=== PATIENT | female | born 1960 | race Caucasian/White ===

== ENCOUNTER 2024-01-08 09:28 | Outpatient (AMB) | payer MEDICARE, MEDICAID, SELFPAY ==
--- NOTE | 2024-01-08 09:29 | A.OFFVIS_ITS ---
Vital Signs 3 01/08/24 09:30 Height 5 ft 4 in Weight 197 lb 15.602 oz BMI 34.0 BP 134/73 Blood Pressure Location Rt brachial Position Sitting Pulse 86 Intake Visit Reasons: Colonoscopy screening Intake Note: New patient in office today for colonoscopy screening. CC: Patient states that she is either constipated or has diarrhea. She also c/o excruciating spasms in her esophagus, acid reflux. She also states that after having covid she's had diminished lung capacity. She also states that she has a fatty liver. Last colonoscopy about 8 years ago at [facility] per patient. Plastic Surgery Coordinator Required: No Accompanied by: Self / Same As Patient Allergies citalopram [From CELEXA] Allergy (Unknown, Verified 01/08/24 09:43) hives, swelling of whole body including face,hands,feet codeine [CODEINE] Allergy (Unknown, Verified 01/08/24 09:43) nausea diazepam [From VALIUM] Allergy (Unknown, Verified 01/08/24 09:43) low blood pressure erythromycin base [ERYTHROMYCIN BASE] Allergy (Unknown, Verified 01/08/24 09:43) rash, swelling Penicillins [PENICILLINS] Allergy (Unknown, Verified 01/08/24 09:43) anaphylaxis HPI HPI Colonoscopy screening: Details: 63-year-old female here for preprocedural meeting to discuss a screening colonoscopy. She is referred by [facility]. P.m. X Hypertension High cholesterol Depression GERD Lumbar degenerative disc disease MVR mild Restrictive lung disease s/p covid DVT and son of DVT * SURGICAL HISTORY Uterine ablation panniculectomy * ALLERGIES Erythromycin - rash Penicillin - swelling Citalopram - rash Codeine - nausea Diazepam - hypotension * Cigital LABS: No labs TODAY'S VISIT She had had several colonoscopies her last 8 years ago and she has a hx of TA's. She suffers CIC alt with diarrhea, she will go many days without a BM and the initial stool is very hard at times. The CIC is more often. She also will have severe gas pain and cramping. She has tried fiber but it made her very gassy. she has tried MIralax, dulcolax, senna and colace w/o any relief - they did not work. She has lost 60lbs with intentional dieting. She gained a lot of weight stress eating after her sons . This may have c/t her CIC. She has GERD and lately a lot of spasms in my esophagus, which is also worse since she had covid. Meat will get stuck in the mid sternal area. She will have the pain even when not swallowing. It feels like a heart attack, but she has had a negative work up. She stopped the omeprazole for now, giving of prn pepcid. She is naive to anesthesia and sedation. She has some reactive lung disease since covid that is controlled, no cardiac problems just mild MVR. No ID problems. She had a hx of TA's and FHX of maternal aunt with CRC and mother, sister, uncle with polyps. ROV 5 weeks. [facility] Medical History (Updated 01/08/24 @ 10:27 by SOM Marie) History of DVT (deep vein thrombosis) Surgical History H/O abdominoplasty H/O colonoscopy Family History Mother Colon polyp Ovarian cancer Pancreatic cancer Sister Colon cancer Sister Colon polyp Cancer of uterus Brother Liver cancer Maternal Aunt Colon cancer Maternal Uncle Colon polyp Social History Alcohol intake: current Alcohol intake frequency: holidays/special occasions only Patient Tobacco Use Status: Former Tobacco user Review of Systems Const Denies fatigue, Denies fever(s), Denies night sweats, Denies poor appetite and Reports weight loss ENT Reports Normal hearing present, Denies dental pain, Reports dysphagia, Denies hearing loss, Denies mouth pain, Denies odynophagia, Denies throat swelling, Denies tongue swelling and Reports other (Dentition adequate) Card Reports chest pain Resp Reports no additional complaints GI Details: Reports abdominal pain, Denies melena, Reports bloating, Denies hematochezia, Reports constipation, Denies GI cramping, Reports dysphagia, Denies excessive flatus, Denies early satiety, Reports heartburn, Reports diarrhea, Denies nausea, Denies odynophagia, Denies vomiting and Denies hematemesis Skin/Breast Denies pruritus, Denies lesions, Denies rash and Denies jaundice Neuro Reports Normal hearing present and Denies Abnormal speech present Endo Denies fatigue Aller/Immun Denies throat swelling and Denies tongue swelling Physical Exam Vital Signs: Last Vital Signs Pulse 86 01/08/24 09:30 BP 134/73 01/08/24 09:30 BMI result Body Mass Index 34.0 Const General: cooperative, no acute distress, well developed and well groomed Nutritional Appearance: well nourished and obese Orientation/consciousness: oriented to person, oriented to place and oriented to time Limitations: No language barrier HEENT Head: Yes normocephalic and Yes atraumatic Eyes General: appearance normal, both eyes and all related structures Pupils: Equal, round and reactive pupils present Neck Neck: Yes normal visual inspection and Yes no lymphadenopathy Thyroid: Thyroid normal Resp Effort & Inspection: normal respiratory effort and able to speak in complete sentences Auscultation: clear to auscultation bilaterally Cardio Rate: regular rate Rhythm: regular rhythm Heart sounds: Normal, physiologic split S2 sound present Peripheral pulses: radial pulses present and posterior tibial pulses present GI Inspection: No distended, No Abdominal panniculus present and Yes obesity Palpation (GI): Soft to palpation, nontender, no guarding, not rigid and No hepatosplenomegaly present Percussion: Yes normal to percussion Auscultation: normal bowel sounds Rectal Exam - Female: deferred Abdomen image: 2 1. surgical scars Skin General skin exam: no rashes or lesions noted, turgor normal, skin not dry, no jaundice, No spider nevi and no striae Rashes: no rashes Nails: normal Neuro General: oriented to person, oriented to place and oriented to time Cranial nerves: Yes Equal, round and reactive pupils present and Yes Normal hearing present Speech: No Abnormal speech present Extrem General: Yes normal to inspection, No clubbing, No cyanosis and No edema Psych Appearance: grossly normal and well kempt Mental Status: mental status grossly normal Speech and movement: Normal speech and movement present Affect: normal affect Attitude: cooperative Thought process: Normal thought process present and not confabulating Thought content: Normal thought content present Insight: Fair insight present (Psych) Judgement: Fair judgement present (Psych) Assessment & Plan Assessment & Plan (1) Pre-op examination: Code(s): Z01.818 - Encounter for other preprocedural examination Category: Medical (2) GERD (gastroesophageal reflux disease): Code(s): K21.9 - Gastro-esophageal reflux disease without esophagitis Category: Medical (3) Dysphagia: Code(s): R13.10 - Dysphagia, unspecified Category: Medical (4) Chronic idiopathic constipation: Code(s): K59.04 - Chronic idiopathic constipation Category: Medical Plan She had had several colonoscopies her last 8 years ago and she has a hx of TA's. She suffers CIC alt with diarrhea, she will go many days without a BM and the initial stool is very hard at times. The CIC is more often. She also will have severe gas pain and cramping. She has tried fiber but it made her very gassy. she has tried MIralax, dulcolax, senna and colace w/o any relief - they did not work. She has lost 60lbs with intentional dieting. She gained a lot of weight stress eating after her sons . This may have c/t her CIC. She has GERD and lately a lot of spasms in my esophagus, which is also worse since she had covid. Meat will get stuck in the mid sternal area. She will have the pain even when not swallowing. It feels like a heart attack, but she has had a negative work up. She stopped the omeprazole for now, giving of prn pepcid. She is naive to anesthesia and sedation. She has some reactive lung disease since covid that is controlled, no cardiac problems just mild MVR. No ID problems. She had a hx of TA's and FHX of maternal aunt with CRC and mother, sister, uncle with polyps. ROV 5 weeks. Orders: Orders 2 EGD/[place] Combo - GI Use Only 01/08/24 Z.818 - Encounter for other preprocedural examination, R13.10 - Dysphagia, unspecified Comprehensive Met. Panel 01/08/24 Z01.818 - Encounter for other preprocedural examination, R13.10 - Dysphagia, unspecified Complete Blood Count Auto Diff 01/08/24 Z.818 - Encounter for other preprocedural examination, R13.10 - Dysphagia, unspecified FL barium swallow 01/12/24 R13.10 - Dysphagia, unspecified, Z01.818 - Encounter for other preprocedural examination, K21.9 - Gastro-esophageal reflux disease without esophagitis Medications: New 2 bisacodyl (Dulcolax (bisacodyl)) 10 mg (2 x 5 mg) PO BEDTIME 4 tabs 0RF 2 days famotidine (Pepcid) 40 mg PO BEDTIME 30 tabs 6RF K21.9 - Gastro-esophageal reflux disease without esophagitis peg 3350-electrolytes 236-22.74-6.74 -5.86 gram (Golytely) until fecal effluent is clear; do not exceed a total volume of 2,000 mL 240 mL PO Q10M 4,000 mL 0RF 1 day Z12.11 - Encounter for screening for malignant neoplasm of colon linaclotide (Linzess) 72 mcg PO QAM 30 caps 3RF K59.04 - Chronic idiopathic constipation Coding Level of Care Code New Pt Level 3 (23520) Diagnoses Pre-op examination Z01.818 GERD (gastroesophageal reflux disease) K21.9 Dysphagia R13.10 Chronic idiopathic constipation K59.04
[2024-01-08 09:30] VITALS: BP 134/73; PULSE 86; BMI 34.0
== END 2024-01-08 10:35 | disposition home or self-care (01) ==
PROVIDERS: PCP Physician Assistant Medical; Visit Provider Nurse Practitioner
DX: K21.9 Gastro-esophageal reflux disease without esophagitis (principal); R13.10 Dysphagia, unspecified; K59.04 Chronic idiopathic constipation; Z12.11 Encounter for screening for malignant neoplasm of colon
CPT/HCPCS: 99203

== ENCOUNTER → 2024-01-08 09:28 | Outpatient (BNVA) | payer MEDICARE, MEDICAID, SELFPAY | PROVIDERS: PCP Physician Assistant Medical; Visit Provider Nurse Practitioner | DX: Z01.818 Encounter for other preprocedural examination (principal); R13.10 Dysphagia, unspecified; K21.9 Gastro-esophageal reflux disease without esophagitis; K59.04 Chronic idiopathic constipation | CPT/HCPCS: 99202 ==

== ENCOUNTER 2024-01-12 08:44 | Outpatient (REF) | payer MEDICARE, MEDICAID, SELFPAY ==
--- NOTE | ~2024-01-12 | FL_ITS ---
EXAMINATION: XR FLUOROSCOPY UPPER GI WITH AIR CLINICAL INFORMATION: Dysphagia COMPARISON: None TECHNIQUE: Fluoroscopic air contrast upper GI examination was performed utilizing standard techniques with thin and thick barium and effervescent granules. Numerous spot images were obtained. FINDINGS: Lateral cine images of the oropharynx and hypopharynx demonstrate normal swallow mechanism with normal epiglottic inversion and soft palate elevation. No tracheal penetration, glottic or subglottic aspiration identified. No nasopharyngeal reflux present. Hypopharyngeal structures appear normal without evidence of mass or diverticulum. There was no significant cricopharyngeal achalasia. Dual and single contrast images of the esophagus demonstrate normal caliber, contour, and mucosal pattern. No evidence of stricture, mass, or ulcerations identified. Esophageal peristalsis is mildly disorganized. A very small type I hiatal hernia is present. No significant gastroesophageal reflux was seen during the course of the examination and on reflux views. Dual contrast and single contrast images of the stomach demonstrated normal contour and mucosal pattern without evidence of mass, ulceration, or other abnormality. Contrast freely passed into the gastric antrum and duodenal bulb without delay. Single and air-contrast images of the duodenal bulb demonstrate no abnormality. The duodenal sweep has a normal appearance, course, and mucosal fold appearance. The imaged proximal jejunum has a normal fold pattern and caliber. FLUOROSCOPY TIME: 5 minutes 3 seconds Number of Spot Images: 10 Number of Cine: 14 DOSE AREA PRODUCT: 3301 uGy-m2 (microgray-meter squared) FL/FL barium swallow IMPRESSION: 1. Mildly disorganized esophageal peristalsis 2. Very small type I hiatal hernia This procedure was performed by Everett Mccann PA-C, and supervised by Dr. Maravilla
== END 2024-01-12 08:45 | disposition home or self-care (01) ==
LOC: HO.XRAY 08:44
PROVIDERS: Visit Provider Nurse Practitioner
DX: Z01.818 Encounter for other preprocedural examination (principal); R13.10 Dysphagia, unspecified; K21.9 Gastro-esophageal reflux disease without esophagitis
CPT/HCPCS: 74220

== ENCOUNTER → 2024-01-12 08:50 | Outpatient (BNV) | payer MEDICARE, MEDICAID, SELFPAY | PROVIDERS: Visit Provider Physician Assistant Surgical | DX: R13.10 Dysphagia, unspecified (principal) | CPT/HCPCS: 74246 ==

== ENCOUNTER 2024-02-09 08:35 | Outpatient (REF) | payer MEDICARE, MEDICAID, SELFPAY ==
[2024-02-09 09:02] LABS: MANUAL DIFF FLAG NO
[2024-02-09 09:27] LABS: Basophils Absolute Auto 0.1 X10*3/uL (0.0-0.2); Basophils Percent Auto 0.6 % (0-2); Eosinophils Absolute Auto 0.2 X10*3/uL (0.0-0.4); Eosinophils Percent Auto 2.2 % (0-4); Hematocrit 42.4 % (37.0-47.0); Hemoglobin 15.2 g/dl (12.0-16.0); Imm Gran Abs Auto 0.01 X10*3/uL (0.00-0.03); Imm Gran Pct Auto 0.1 % (0.0-0.4); Lymphocytes Absolute Auto 3.1 X10*3/uL (1.2-4.9); Lymphocytes Percent Auto 39.7 % (20-40); Mean Corpuscular HGB Conc 35.8 g/dl (31.0-35.0); Mean Corpuscular Volume 86.5 fL (80.0-98.0); Mean Platelet Volume 11.8 fL (9.4-12.3); Monocytes Absolute Auto 0.4 X10*3/uL (0.1-1.2); Monocytes Percent Auto 5.1 % (2-11); Neutrophils Absolute Auto 4.1 x10*3/uL (2.0-8.3); Neutrophils Percent Auto 52.3 % (45-73); Platelet Count 220 X10*3/uL (160-400); Red Cell Distribution Width 13.4 % (11.0-16.0); White Blood Count 7.9 X10*3/uL (4.8-10.8)
[2024-02-09 09:57] LABS: Alanine Aminotransferase 18 U/L (0-31); Albumin Level 4.2 g/dL (3.5-5.0); Alkaline Phosphatase 72 U/L (39-117); Anion Gap 13 (12-20); Aspartate Amino Transferase 18 U/L (5-31); Bilirubin Total 0.7 mg/dL (0.0-1.0); Blood Urea Nitrogen 19 mg/dL (9-16); Calcium 9.7 mg/dL (8.4-10.2); Carbon Dioxide 26 mmol/L (22-29); Chloride 107 mmol/L (96-108); Estimated Glomerular Filt Rate > 60; Glucose Random 97 mg/dL (60-115); Potassium 4.1 mmol/L (3.3-5.1); Sodium 142 mmol/L (135-145); Total Protein 7.2 g/dL (6.5-8.0)
== END 2024-02-09 08:36 | disposition home or self-care (01) ==
LOC: HO.LAB 08:35
PROVIDERS: Visit Provider Nurse Practitioner
DX: Z01.818 Encounter for other preprocedural examination (principal); R13.10 Dysphagia, unspecified
CPT/HCPCS: 36415; 80053; 85025

== ENCOUNTER 2024-02-12 12:17 | Outpatient (AMB) | payer MEDICARE, MEDICAID, SELFPAY ==
--- NOTE | 2024-02-12 12:26 | A.OFFVIS_ITS ---
Vital Signs 02/12/24 12:32 Height 5 ft 4 in Weight 198 lb 13.711 oz BMI 34.1 BP 116/56 L Blood Pressure Location Rt brachial Position Sitting Pulse 82 Pulse Source Pulse Oximeter Pulse Oximetry (%) 95 Oxygen Delivery Method Room Air Intake Visit Reasons: 5 week follow up Intake Note: Jessi presents in office today for a scheduled 5 week FUV. CC; Pt reports that their sx have remained constant since their last visit. Pt states that they had moderate to severe diarrhea more often than normal BMs over the last few weeks. Pt states that they are still taking the linzess as instructed despite their current position. Pt reports that she is still dealing with the intermittent constipation when she is not having diarrhea. Pt is also dealing with bloating in the upper abdomen. Lock Up Worker Required: No Allergies citalopram [From CELEXA] Allergy (Unknown, Verified 02/12/24 12:34) hives, swelling of whole body including face,hands,feet codeine [CODEINE] Allergy (Unknown, Verified 02/12/24 12:34) nausea diazepam [From VALIUM] Allergy (Unknown, Verified 02/12/24 12:34) low blood pressure erythromycin base [ERYTHROMYCIN BASE] Allergy (Unknown, Verified 02/12/24 12:34) rash, swelling Penicillins [PENICILLINS] Allergy (Unknown, Verified 02/12/24 12:34) anaphylaxis HPI HPI 5 week follow up: Details: Assessment & Plan (1) Pre-op examination: Code(s): Z01.818 - Encounter for other preprocedural examination Category: Medical (2) GERD (gastroesophageal reflux disease): Code(s): K21.9 - Gastro-esophageal reflux disease without esophagitis Category: Medical (3) Dysphagia: Code(s): R13.10 - Dysphagia, unspecified Category: Medical (4) Chronic idiopathic constipation: Code(s): K59.04 - Chronic idiopathic constipation Category: Medical Plan She had had several colonoscopies her last 8 years ago and she has a hx of TA's. She suffers CIC alt with diarrhea, she will go many days without a BM and the initial stool is very hard at times. The CIC is more often. She also will have severe gas pain and cramping. She has tried fiber but it made her very gassy. she has tried MIralax, dulcolax, senna and colace w/o any relief - they did not work. She has lost 60lbs with intentional dieting. She gained a lot of weight stress eating after her sons . This may have c/t her CIC. She has GERD and lately a lot of spasms in my esophagus, which is also worse since she had covid. Meat will get stuck in the mid sternal area. She will have the pain even when not swallowing. It feels like a heart attack, but she has had a negative work up. She stopped the omeprazole for now, giving of prn pepcid. She is naive to anesthesia and sedation. She has some reactive lung disease since covid that is controlled, no cardiac problems just mild MVR. No ID problems. She had a hx of TA's and FHX of maternal aunt with CRC and mother, sister, uncle with polyps. ROV 5 weeks. Orders: Orders EGD/Silvis Combo - GI Use Only 01/08/24 Z01.818 - Encounter for other preprocedural examination, R13.10 - Dysphagia, unspecified Comprehensive Met. Panel 01/08/24 Z01.818 - Encounter for other preprocedural examination, R13.10 - Dysphagia, unspecified Complete Blood Count Auto Diff 01/08/24 Z01.818 - Encounter for other preprocedural examination, R13.10 - Dysphagia, unspecified FL barium swallow 01/12/24 R13.10 - Dysphagia, unspecified, Z01.818 - Encounter for other preprocedural examination, K21.9 - Gastro-esophageal reflux disease without esophagitis Medications: New bisacodyl (Dulcolax (bisacodyl)) 10 mg (2 x 5 mg) PO BEDTIME 4 tabs 0RF 2 days famotidine (Pepcid) 40 mg PO BEDTIME 30 tabs 6RF K21.9 - Gastro-esophageal reflux disease without esophagitis peg 3350-electrolytes 236-22.74-6.74 -5.86 gram (Golytely) until fecal effluent is clear; do not exceed a total volume of 2,000 mL 240 mL PO Q10M 4,000 mL 0RF 1 day Z12.11 - Encounter for screening for malignant neoplasm of colon linaclotide (Linzess) 72 mcg PO QAM 30 caps 3RF K59.04 - Chronic idiopathic constipation LABS: Laboratory Tests 02/09/24 09:01 WBC 7.9 Hgb 15.2 Hct 42.4 MCV 86.5 MCH 31.0 Plt Count 220 Estimated GFR > 60 Total Bilirubin 0.7 AST 18 ALT 18 Alkaline Phosphatase 72 BARIUM SWALLOW FINDINGS: Lateral cine images of the oropharynx and hypopharynx demonstrate normal swallow mechanism with normal epiglottic inversion and soft palate elevation. No tracheal penetration, glottic or subglottic aspiration identified. No nasopharyngeal reflux present. Hypopharyngeal structures appear normal without evidence of mass or diverticulum. There was no significant cricopharyngeal achalasia. Dual and single contrast images of the esophagus demonstrate normal caliber, contour, and mucosal pattern. No evidence of stricture, mass, or ulcerations identified. Esophageal peristalsis is mildly disorganized. A very small type I hiatal hernia is present. No significant gastroesophageal reflux was seen during the course of the examination and on reflux views. Dual contrast and single contrast images of the stomach demonstrated normal contour and mucosal pattern without evidence of mass, ulceration, or other abnormality. Contrast freely passed into the gastric antrum and duodenal bulb without delay. Single and air-contrast images of the duodenal bulb demonstrate no abnormality. The duodenal sweep has a normal appearance, course, and mucosal fold appearance. The imaged proximal jejunum has a normal fold pattern and caliber. FLUOROSCOPY TIME: 5 minutes 3 seconds Number of Spot Images: 10 Number of Cine: 14 DOSE AREA PRODUCT: 3301 uGy-m2 (microgray-meter squared) FL/FL barium swallow IMPRESSION: 1. Mildly disorganized esophageal peristalsis 2. Very small type I hiatal hernia EGD/COLONOSCOPY Scheduled for 08/01/2024 BIOPSY TODAY'S VISIT The Joie at 72 micro g is not regulating her bowels yet. She will still go several days without a bowel movement followed by responsive diarrhea. Will increase to 145 micro g. We reviewed the barium swallow and it does not show any severe concerning causes. The EGD will likely be telling in terms of her dysphagia. She does better when she keeps water Handy when she is eating. She is doing okay on the Pepcid. She will still have occasional chest pain and we discuss her trying to take the Pepcid when this happens to see if it has an impact. This will help us decipher between heartburn and esophageal spasm. Return office visit in 6 weeks [facility] Medical History History of DVT (deep vein thrombosis) Surgical History H/O abdominoplasty H/O colonoscopy Family History Mother Colon polyp Ovarian cancer Pancreatic cancer Sister Colon cancer Sister Colon polyp Cancer of uterus Brother Liver cancer Maternal Aunt Colon cancer Maternal Uncle Colon polyp Social History Alcohol intake: current Alcohol intake frequency: holidays/special occasions only Patient Tobacco Use Status: Former Tobacco user Review of Systems Const Denies fatigue, Denies fever(s), Denies night sweats, Denies poor appetite and Denies weight loss ENT Reports Normal hearing present, Denies dental pain, Denies dysphagia, Denies hearing loss, Denies mouth pain, Denies odynophagia, Denies throat swelling, Denies tongue swelling and Reports other (Dentition adequate) GI Details: Denies abdominal pain, Denies melena, Denies bloating, Denies hematochezia, Denies constipation, Denies GI cramping, Denies dysphagia, Denies excessive flatus, Denies early satiety, Denies heartburn, Denies diarrhea, Denies nausea, Denies odynophagia, Denies vomiting and Denies hematemesis Skin/Breast Denies pruritus, Denies lesions, Denies rash and Denies jaundice Neuro Reports Normal hearing present and Denies Abnormal speech present Endo Denies fatigue Aller/Immun Denies throat swelling and Denies tongue swelling Physical Exam Vital Signs: Last Vital Signs Pulse 82 02/12/24 12:32 BP 116/56 L 02/12/24 12:32 Pulse Ox 95 02/12/24 12:32 Oxygen Delivery Method Room Air 02/12/24 12:32 BMI result Body Mass Index 34.1 Const General: cooperative, no acute distress, well developed and well groomed Nutritional Appearance: well nourished, obese and overweight Orientation/consciousness: oriented to person, oriented to place and oriented to time Limitations: No language barrier, ambulation with cane, ambulation with walker and wheelchair HEENT Head: Yes normocephalic and Yes atraumatic Eyes General: appearance normal, both eyes and all related structures Pupils: Equal, round and reactive pupils present Neck Neck: Yes normal visual inspection and Yes no lymphadenopathy Thyroid: Thyroid normal Resp Effort & Inspection: normal respiratory effort and able to speak in complete sentences Auscultation: clear to auscultation bilaterally Cardio Rate: regular rate Rhythm: regular rhythm Heart sounds: Normal, physiologic split S2 sound present Peripheral pulses: radial pulses present and posterior tibial pulses present GI Inspection: No distended and No Abdominal panniculus present Palpation (GI): Soft to palpation, nontender, no guarding, not rigid, No hepatosplenomegaly present and Hepatosplenomegaly present Percussion: Yes normal to percussion Auscultation: normal bowel sounds Rectal Exam - Female: deferred Skin General skin exam: no rashes or lesions noted, turgor normal, skin not dry, no jaundice, No spider nevi and no striae Rashes: no rashes Nails: normal Neuro General: oriented to person, oriented to place and oriented to time Cranial nerves: Yes Equal, round and reactive pupils present and Yes Normal hearing present Speech: No Abnormal speech present Extrem General: Yes normal to inspection, No clubbing, No cyanosis and No edema Psych Thought process: Normal thought process present and not confabulating Thought content: Normal thought content present Insight: Good insight present (Psych) Judgement: Good judgement present (Psych) Results Reviewed Results Reviewed: Laboratory Tests 02/09/24 09:01 WBC 7.9 Hgb 15.2 Hct 42.4 MCV 86.5 MCH 31.0 Plt Count 220 Estimated GFR > 60 Total Bilirubin 0.7 AST 18 ALT 18 Alkaline Phosphatase 72 BARIUM SWALLOW FINDINGS: Lateral cine images of the oropharynx and hypopharynx demonstrate normal swallow mechanism with normal epiglottic inversion and soft palate elevation. No tracheal penetration, glottic or subglottic aspiration identified. No nasopharyngeal reflux present. Hypopharyngeal structures appear normal without evidence of mass or diverticulum. There was no significant cricopharyngeal achalasia. Dual and single contrast images of the esophagus demonstrate normal caliber, contour, and mucosal pattern. No evidence of stricture, mass, or ulcerations identified. Esophageal peristalsis is mildly disorganized. A very small type I hiatal hernia is present. No significant gastroesophageal reflux was seen during the course of the examination and on reflux views. Dual contrast and single contrast images of the stomach demonstrated normal contour and mucosal pattern without evidence of mass, ulceration, or other abnormality. Contrast freely passed into the gastric antrum and duodenal bulb without delay. Single and air-contrast images of the duodenal bulb demonstrate no abnormality. The duodenal sweep has a normal appearance, course, and mucosal fold appearance. The imaged proximal jejunum has a normal fold pattern and caliber. FLUOROSCOPY TIME: 5 minutes 3 seconds Number of Spot Images: 10 Number of Cine: 14 DOSE AREA PRODUCT: 3301 uGy-m2 (microgray-meter squared) FL/FL barium swallow IMPRESSION: 1. Mildly disorganized esophageal peristalsis 2. Very small type I hiatal hernia Assessment & Plan Assessment & Plan (1) Dysphagia: Code(s): R13.10 - Dysphagia, unspecified Category: Medical (2) Chronic idiopathic constipation: Code(s): K59.04 - Chronic idiopathic constipation Category: Medical (3) GERD (gastroesophageal reflux disease): Code(s): K21.9 - Gastro-esophageal reflux disease without esophagitis Category: Medical Plan The Linzess at 72 micro g is not regulating her bowels yet. She will still go several days without a bowel movement followed by responsive diarrhea. Will increase to 145 micro g. We reviewed the barium swallow and it does not show any severe concerning causes. The EGD will likely be telling in terms of her dysphagia. She does better when she keeps water Handy when she is eating. She is doing okay on the Pepcid. She will still have occasional chest pain and we discuss her trying to take the Pepcid when this happens to see if it has an impact. This will help us decipher between heartburn and esophageal spasm. Return office visit in 6 weeks EGD/COLONOSCOPY Scheduled for 08/01/2024 BIOPSY Medications: New linaclotide (Linzess) Take first thing in the morning with a full glass of water. 145 mcg PO QAM 30 caps 6RF K58.1 - Irritable bowel syndrome with constipation Discontinued linaclotide Discontinued Reason: Doctor's Order 72 mcg PO QAM 30 caps 3RF K59.04 - Chronic idiopathic constipation Coding Level of Care Code Est Pt Level 3 (94925) Diagnoses Dysphagia R13.10 Chronic idiopathic constipation K59.04 GERD (gastroesophageal reflux disease) K21.9
[2024-02-12 12:32] VITALS: BP 116/56; PULSE 82; O2SAT 95; BMI 34.1
== END 2024-02-12 12:45 | disposition home or self-care (01) ==
PROVIDERS: PCP Physician Assistant Medical; Visit Provider Nurse Practitioner
DX: R13.10 Dysphagia, unspecified (principal); K59.04 Chronic idiopathic constipation; K21.9 Gastro-esophageal reflux disease without esophagitis
CPT/HCPCS: 99213

== ENCOUNTER → 2024-02-12 12:17 | Outpatient (BNVA) | payer MEDICARE, MEDICAID, SELFPAY | PROVIDERS: PCP Physician Assistant Medical; Visit Provider Nurse Practitioner | DX: K59.04 Chronic idiopathic constipation (principal); K21.9 Gastro-esophageal reflux disease without esophagitis; R13.10 Dysphagia, unspecified | CPT/HCPCS: 99212 ==

== ENCOUNTER 2024-05-03 14:57 | Outpatient (AMB) | payer MEDICARE, MEDICAID, SELFPAY ==
--- NOTE | 2024-05-03 15:06 | MHC.OFFVIS ---
Vital Signs 05/03/24 15:07 Height 5 ft 4 in BMI Reason not done Patient refused/unable BP 136/67 Blood Pressure Location Lt brachial Position Sitting Pulse 81 Intake Visit Reasons: Follow up 6 weeks Intake Note: Jessi presents to in office today in 6 weeks follow up of CIC. CC: Patient reports that she feels like she is not emptying her bowels completely but she is having stools that look like musk and sometimes stool stays stuck. Television Agent Required: No Accompanied by: Self / Same As Patient Allergies citalopram [From CELEXA] Allergy (Unknown, Verified 05/03/24 15:08) hives, swelling of whole body including face,hands,feet codeine [CODEINE] Allergy (Unknown, Verified 05/03/24 15:08) nausea diazepam [From VALIUM] Allergy (Unknown, Verified 05/03/24 15:08) low blood pressure erythromycin base [ERYTHROMYCIN BASE] Allergy (Unknown, Verified 05/03/24 15:08) rash, swelling Penicillins [PENICILLINS] Allergy (Unknown, Verified 05/03/24 15:08) anaphylaxis HPI HPI Follow up 6 weeks: Details: Assessment & Plan (1) Dysphagia: Code(s): R13.10 - Dysphagia, unspecified Category: Medical (2) Chronic idiopathic constipation: Code(s): K59.04 - Chronic idiopathic constipation Category: Medical (3) GERD (gastroesophageal reflux disease): Code(s): K21.9 - Gastro-esophageal reflux disease without esophagitis Category: Medical Plan The Linzess at 72 micro g is not regulating her bowels yet. She will still go several days without a bowel movement followed by responsive diarrhea. Will increase to 145 micro g. We reviewed the barium swallow and it does not show any severe concerning causes. The EGD will likely be telling in terms of her dysphagia. She does better when she keeps water Handy when she is eating. She is doing okay on the Pepcid. She will still have occasional chest pain and we discuss her trying to take the Pepcid when this happens to see if it has an impact. This will help us decipher between heartburn and esophageal spasm. Return office visit in 6 weeks Medications: New linaclotide (Linzess) Take first thing in the morning with a full glass of water. 145 mcg PO QAM 30 caps 6RF K58.1 - Irritable bowel syndrome with constipation Discontinued linaclotide Discontinued Reason: Doctor's Order 72 mcg PO QAM 30 caps 3RF K59.04 - Chronic idiopathic constipation EGD/COLONOSCOPY Scheduled for 08/01/2024 BIOPSY TODAYS VISIT SHe is still not moving her bowels daily with the 145mcg LInzess, and the stools are sticky/soft. We will increase to 290mcg, and if this is too strong we will move back to 145 and add something like senna. She is also taking the famotidine daily. This is controlling her acid and chest pain better. Once thte bowels are better regulated we could consider a trial of backing off of her pepcid. SHe is happy with this. ROV 3 weeks. [facility] Medical History History of DVT (deep vein thrombosis) Surgical History H/O abdominoplasty H/O colonoscopy Family History Mother Colon polyp Ovarian cancer Pancreatic cancer Sister Colon cancer Sister Colon polyp Cancer of uterus Brother Liver cancer Maternal Aunt Colon cancer Maternal Uncle Colon polyp Social History (Updated 05/03/24 @ 15:22 by KARIE Corado) Alcohol intake: current Alcohol intake frequency: holidays/special occasions only Patient Tobacco Use Status: Former Tobacco user Review of Systems Const Denies fatigue, Denies fever(s), Denies night sweats, Denies poor appetite and Denies weight loss ENT Reports Normal hearing present, Denies dental pain, Denies dysphagia, Denies hearing loss, Denies mouth pain, Denies odynophagia, Denies throat swelling, Denies tongue swelling and Reports other (Dentition adequate) Card Reports no additional complaints Resp Reports no additional complaints GI Details: Denies abdominal pain, Denies melena, Denies bloating, Denies hematochezia, Reports constipation, Denies GI cramping, Denies dysphagia, Denies excessive flatus, Denies early satiety, Reports heartburn, Denies diarrhea, Denies nausea, Denies odynophagia, Denies vomiting and Denies hematemesis Skin/Breast Denies pruritus, Denies lesions, Denies rash and Denies jaundice Neuro Reports Normal hearing present and Denies Abnormal speech present Endo Denies fatigue Aller/Immun Denies throat swelling and Denies tongue swelling Physical Exam Vital Signs: Last Vital Signs Pulse 81 05/03/24 15:07 BP 136/67 05/03/24 15:07 Const General: cooperative, no acute distress, well developed and well groomed Nutritional Appearance: well nourished and obese Orientation/consciousness: oriented to person, oriented to place and oriented to time Limitations: No language barrier HEENT Head: Yes normocephalic and Yes atraumatic Eyes General: appearance normal, both eyes and all related structures Pupils: Equal, round and reactive pupils present Neck Neck: Yes normal visual inspection and Yes no lymphadenopathy Thyroid: Thyroid normal Resp Effort & Inspection: normal respiratory effort and able to speak in complete sentences Auscultation: clear to auscultation bilaterally Cardio Rate: regular rate Rhythm: regular rhythm Heart sounds: Normal, physiologic split S2 sound present Peripheral pulses: radial pulses present and posterior tibial pulses present GI Inspection: No distended, No Abdominal panniculus present and Yes obesity Palpation (GI): Soft to palpation, nontender, no guarding, not rigid and No hepatosplenomegaly present Percussion: Yes normal to percussion Auscultation: normal bowel sounds Rectal Exam - Female: deferred Skin General skin exam: no rashes or lesions noted, turgor normal, skin not dry, no jaundice, No spider nevi and no striae Rashes: no rashes Nails: normal Neuro General: oriented to person, oriented to place and oriented to time Cranial nerves: Yes Equal, round and reactive pupils present and Yes Normal hearing present Speech: No Abnormal speech present Extrem General: Yes normal to inspection, No clubbing, No cyanosis and No edema Psych Appearance: grossly normal and well kempt Mental Status: mental status grossly normal Speech and movement: Normal speech and movement present Affect: normal affect Attitude: cooperative Thought process: Normal thought process present and not confabulating Thought content: Normal thought content present Insight: Fair insight present (Psych) Judgement: Fair judgement present (Psych) Assessment & Plan Assessment & Plan (1) Chronic idiopathic constipation: Code(s): K59.04 - Chronic idiopathic constipation Category: Medical (2) Dysphagia: Code(s): R13.10 - Dysphagia, unspecified Category: Medical (3) GERD (gastroesophageal reflux disease): Code(s): K21.9 - Gastro-esophageal reflux disease without esophagitis Category: Medical Plan She is still not moving her bowels daily with the 145mcg LInzess, and the stools are sticky/soft. We will increase to 290mcg, and if this is too strong we will move back to 145 and add something like senna. She is also taking the famotidine daily. This is controlling her acid and chest pain better. Once the bowels are better regulated we could consider a trial of backing off of her pepcid. She is happy with this. ROV 3 weeks. Medications: New linaclotide (Linzess) 290 mcg PO QAM 30 caps 3RF 30 days K59.04 - Chronic idiopathic constipation On Hold linaclotide (Linzess) Hold Comment: Doctor's Order 145 mcg PO QAM 30 caps 6RF K58.1 - Irritable bowel syndrome with constipation Coding Level of Care Code Est Pt Level 3 (26409) Diagnoses Chronic idiopathic constipation K59.04 Dysphagia R13.10 GERD (gastroesophageal reflux disease) K21.9
[2024-05-03 15:07] VITALS: BP 136/67; PULSE 81
== END 2024-05-03 15:38 | disposition home or self-care (01) ==
PROVIDERS: PCP Physician Assistant Medical; Visit Provider Nurse Practitioner
DX: K59.04 Chronic idiopathic constipation (principal); R13.10 Dysphagia, unspecified; K21.9 Gastro-esophageal reflux disease without esophagitis
CPT/HCPCS: 99213

== ENCOUNTER → 2024-05-03 14:57 | Outpatient (BNVA) | payer MEDICARE, MEDICAID, SELFPAY | PROVIDERS: PCP Physician Assistant Medical; Visit Provider Nurse Practitioner | DX: K58.1 Irritable bowel syndrome with constipation (principal); K59.04 Chronic idiopathic constipation; R13.10 Dysphagia, unspecified; K21.9 Gastro-esophageal reflux disease without esophagitis; Z79.899 Other long term (current) drug therapy | CPT/HCPCS: 99212 ==

== ENCOUNTER 2024-06-22 11:57 | Outpatient (AMB) | payer MEDICARE, MEDICAID, SELFPAY ==
--- NOTE | 2024-06-22 12:09 | MHC.OFFVIS ---
Vital Signs 06/22/24 12:15 Height 5 ft 4 in Weight 201 lb 8.04 oz BMI 34.6 BP 120/60 Blood Pressure Location Rt brachial Position Sitting Pulse 70 Pulse Source Pulse Oximeter Pulse Oximetry (%) 98 Oxygen Delivery Method Room Air Intake Visit Reasons: 3 week follow up Intake Note: PRESCRIPTIONS LAST GENERATED linaclotide 290 mcg capsule?(Linzess)?290 mcg PO QAM 30 caps 3RF 30 days Richter,05/03/24 15:31 (Transmitted) Pt reports that they are no longer taking this medication as they found they were moderately to severely constipated. Pt is not taking any dose of linzess currently. Relevant Flags or Indicators ? Requires Financial Reporting Director? N Jessi presents in office today for a scheduled ~ 2 mos FUV. CC; No recent labs, diagnostics orders placed. ?Meds listed above. Relevant GI Sx as reported per pt? o?? Constipation ? Hx of any recent surgeries? None Allergies citalopram [From CELEXA] Allergy (Unknown, Verified 08/18/24 12:09) hives, swelling of whole body including face,hands,feet codeine [CODEINE] Allergy (Unknown, Verified 08/18/24 12:09) nausea diazepam [From VALIUM] Allergy (Unknown, Verified 08/18/24 12:09) low blood pressure erythromycin base [ERYTHROMYCIN BASE] Allergy (Unknown, Verified 08/18/24 12:09) rash, swelling Penicillins [PENICILLINS] Allergy (Unknown, Verified 08/18/24 12:09) anaphylaxis HPI HPI 3 week follow up: Details: Assessment & Plan (1) Chronic idiopathic constipation: Code(s): K59.04 - Chronic idiopathic constipation Category: Medical (2) Dysphagia: Code(s): R13.10 - Dysphagia, unspecified Category: Medical (3) GERD (gastroesophageal reflux disease): Code(s): K21.9 - Gastro-esophageal reflux disease without esophagitis Category: Medical Plan She is still not moving her bowels daily with the 145mcg LInzess, and the stools are sticky/soft. We will increase to 290mcg, and if this is too strong we will move back to 145 and add something like senna. She is also taking the famotidine daily. This is controlling her acid and chest pain better. Once the bowels are better regulated we could consider a trial of backing off of her pepcid. She is happy with this. ROV 3 weeks. Medications: New linaclotide (Linzess) 290 mcg PO QAM 30 caps 3RF 30 days K59.04 - Chronic idiopathic constipation On Hold linaclotide (Linzess) Hold Comment: Doctor's Order 145 mcg PO QAM 30 caps 6RF K58.1 - Irritable bowel syndrome with constipation EGD/COLONOSCOPY 08/01/2024 BIOPSY TODAY'S VISIT She thinks she never received the Linzess 290, and she has had no relief with the 145mcg dose. So, we will send again and also give her bisacodyl to add if no movement. She continues to feel very bloated and has a great deal of gas. She is aware of the upcoming colonoscopy in July. [facility] Medical History (Updated 08/18/24 @ 12:22 by SOM Marie) Pre-op examination History of DVT (deep vein thrombosis) Surgical History History of esophagogastroduodenoscopy (EGD) H/O abdominoplasty H/O colonoscopy Family History Mother Colon polyp Ovarian cancer Pancreatic cancer Sister Colon cancer Sister Colon polyp Cancer of uterus Brother Liver cancer Maternal Aunt Colon cancer Maternal Uncle Colon polyp Social History Are you a primary home care physical therapist to a significant other at home: No Do you presently have visiting nurse or other home services: No Alcohol intake: current Alcohol intake frequency: does not drink Patient Tobacco Use Status: Former Tobacco user Review of Systems Const Denies fatigue, Denies fever(s), Denies night sweats, Denies poor appetite and Denies weight loss ENT Reports Normal hearing present, Denies dental pain, Reports dysphagia, Denies hearing loss, Denies mouth pain, Denies odynophagia, Denies throat swelling, Denies tongue swelling and Reports other (Dentition adequate) Card Reports no additional complaints Resp Reports no additional complaints GI Details: Denies abdominal pain, Denies melena, Denies bloating, Denies hematochezia, Reports constipation, Denies GI cramping, Reports dysphagia, Denies excessive flatus, Denies early satiety, Reports heartburn, Denies diarrhea, Denies nausea, Denies odynophagia, Denies vomiting and Denies hematemesis Skin/Breast Denies pruritus, Denies lesions, Denies rash and Denies jaundice Neuro Reports Normal hearing present and Denies Abnormal speech present Endo Denies fatigue Aller/Immun Denies throat swelling and Denies tongue swelling Physical Exam Vital Signs: Last Vital Signs Pulse 70 06/22/24 12:15 BP 120/60 06/22/24 12:15 Pulse Ox 98 06/22/24 12:15 Oxygen Delivery Method Room Air 06/22/24 12:15 BMI result Body Mass Index 34.6 Const General: cooperative, no acute distress, well developed and well groomed Nutritional Appearance: well nourished and obese Orientation/consciousness: oriented to person, oriented to place and oriented to time Limitations: No language barrier HEENT Head: Yes normocephalic and Yes atraumatic Eyes General: appearance normal, both eyes and all related structures Pupils: Equal, round and reactive pupils present Neck Neck: Yes normal visual inspection and Yes no lymphadenopathy Thyroid: Thyroid normal Resp Effort & Inspection: normal respiratory effort and able to speak in complete sentences Auscultation: clear to auscultation bilaterally Cardio Rate: regular rate Rhythm: regular rhythm Heart sounds: Normal, physiologic split S2 sound present Peripheral pulses: radial pulses present and posterior tibial pulses present GI Inspection: No distended, No Abdominal panniculus present and Yes obesity Palpation (GI): Soft to palpation, nontender, no guarding, not rigid and No hepatosplenomegaly present Percussion: Yes normal to percussion Auscultation: normal bowel sounds Rectal Exam - Female: deferred Skin General skin exam: no rashes or lesions noted, turgor normal, skin not dry, no jaundice, No spider nevi and no striae Rashes: no rashes Nails: normal Neuro General: oriented to person, oriented to place and oriented to time Cranial nerves: Yes Equal, round and reactive pupils present and Yes Normal hearing present Speech: No Abnormal speech present Extrem General: Yes normal to inspection, No clubbing, No cyanosis and No edema Psych Appearance: grossly normal and well kempt Mental Status: mental status grossly normal Speech and movement: Normal speech and movement present Affect: normal affect Attitude: cooperative Thought process: Normal thought process present and not confabulating Thought content: Normal thought content present Insight: Limited insight present (Psych) Judgement: Limited judgement present (Psych) Assessment & Plan Assessment & Plan (1) Chronic idiopathic constipation: Code(s): K59.04 - Chronic idiopathic constipation Category: Medical (2) Dysphagia: Code(s): R13.10 - Dysphagia, unspecified Category: Medical (3) GERD (gastroesophageal reflux disease): Code(s): K21.9 - Gastro-esophageal reflux disease without esophagitis Category: Medical Plan She thinks she never received the Linzess 290, and she has had no relief with the 145mcg dose. So, we will send again and also give her bisacodyl to add if no movement. She continues to feel very bloated and has a great deal of gas. She continues on her famotidine and feels it has made a difference in her GERD and her dysphagia. She is aware of the upcoming EGD/colonoscopy in July. EGD/COLONOSCOPY BIOPSY Medications: Changed From bisacodyl 10 mg (2 x 5 mg) PO BEDTIME 2 days 4 tabs 0RF . - Chronic idiopathic constipation To bisacodyl (Dulcolax (bisacodyl)) 10 mg (2 x 5 mg) PO BEDTIME 60 tabs 6RF 30 days - Chronic idiopathic constipation Refilled linaclotide (Linzess) 290 mcg PO QAM 30 caps 3RF 30 days - Chronic idiopathic constipation Coding Level of Care Code Est Pt Level 3 (49082) Diagnoses Chronic idiopathic constipation K59.04 Dysphagia R13.10 GERD (gastroesophageal reflux disease) K21.9
[2024-06-22 12:15] VITALS: BP 120/60; PULSE 70; O2SAT 98; BMI 34.6
== END 2024-06-22 13:09 | disposition home or self-care (01) ==
LOC: HO.HGI 11:57
PROVIDERS: PCP Physician Assistant Medical; Visit Provider Nurse Practitioner
DX: K59.04 Chronic idiopathic constipation (principal); R13.10 Dysphagia, unspecified; K21.9 Gastro-esophageal reflux disease without esophagitis
CPT/HCPCS: 99213

== ENCOUNTER → 2024-06-22 11:57 | Outpatient (BNVA) | payer MEDICARE, MEDICAID, SELFPAY | PROVIDERS: PCP Physician Assistant Medical; Visit Provider Nurse Practitioner | DX: K59.04 Chronic idiopathic constipation (principal); K58.1 Irritable bowel syndrome with constipation; K21.9 Gastro-esophageal reflux disease without esophagitis; R13.10 Dysphagia, unspecified | CPT/HCPCS: 99212 ==

== ENCOUNTER 2024-08-01 10:06 | Day surgery (SDC) | payer MEDICARE, MEDICAID, SELFPAY ==
[2024-07-28 14:57] VITALS: BMI 34.6
--- NOTE | 2024-07-29 08:54 | HO.ANESPROP2 ---
Documented by User: Amy Warren NP 07/29/24 08:55 HPI - Anesthesia Eval Consult details Narrative: 64yo F for Upper Endoscopy and Colonoscopy [facility] Active Problems Active Problems: All Active Problems Chronic idiopathic constipation (Acute) Dysphagia (Acute) Pre-op examination (Acute) GERD (gastroesophageal reflux disease) (Acute) Lumbar degenerative disc disease (Acute) Depression (Acute) High cholesterol (Acute) Hypertension (Acute) Past Medical History Medical History History of DVT (deep vein thrombosis) Family History Family History Mother Colon polyp Ovarian cancer Pancreatic cancer Sister Colon cancer Sister Colon polyp Cancer of uterus Brother Liver cancer Maternal Aunt Colon cancer Maternal Uncle Colon polyp Surgical History Surgical History H/O abdominoplasty H/O colonoscopy Social History Social History Are you a primary healthcare administration internship to a significant other at home: No Do you presently have visiting nurse or other home services: No Alcohol intake: current Alcohol intake frequency: does not drink Patient Tobacco Use Status: Former Tobacco user Use of substances other than those prescribed or required for medical reasons: No Have you been hit, kicked, punched, or otherwise hurt by someone within the past year? If so, by whom?: No Are you DNR?: No Advance Directives: No Advance Directives Information Provided: Yes Recently lost weight without trying: No Nutrition Risks: No Nutritional Risk Patient : No Meds Allergies Allergy/AdvReac Type Severity Reaction Status Date / Time citalopram [From CELEXA] Allergy Unknown hives, Verified 06/22/24 12:17 swelling of whole body including face,hands,feet codeine [CODEINE] Allergy Unknown nausea Verified 06/22/24 12:17 diazepam [From VALIUM] Allergy Unknown low blood Verified 06/22/24 12:17 pressure erythromycin base Allergy Unknown rash, Verified 06/22/24 12:17 [ERYTHROMYCIN BASE] swelling Penicillins [PENICILLINS] Allergy Unknown anaphylaxis Verified 06/22/24 12:17 Home Medications ?Medication ?Instructions ?Recorded ?Confirmed ?Last Taken ?Type bupropion HCl 150 mg 24 hr tablet, 150 mg PO QAM 01/08/24 Unknown History extended release Exam Height,Weight and Vital Signs: Height 5 ft 4 in Weight 91.399 kg Assessment and Plan Assessment Anesthesia Assessment: Chart Reviewed Documented by User: June Sinha MD 08/01/24 11:16 [facility] Past Medical History Medical History History of DVT (deep vein thrombosis) Family History Family History Mother Colon polyp Ovarian cancer Pancreatic cancer Sister Colon cancer Sister Colon polyp Cancer of uterus Brother Liver cancer Maternal Aunt Colon cancer Maternal Uncle Colon polyp Family history of problems with anesthesia: No Surgical History Surgical History H/O abdominoplasty H/O colonoscopy History of Problems with Anesthesia: No Social History Social History Are you a primary healthcare administration internship to a significant other at home: No Do you presently have visiting nurse or other home services: No Alcohol intake: current Alcohol intake frequency: does not drink Patient Tobacco Use Status: Former Tobacco user Use of substances other than those prescribed or required for medical reasons: No Have you been hit, kicked, punched, or otherwise hurt by someone within the past year? If so, by whom?: No Are you DNR?: No Advance Directives: No Advance Directives Information Provided: Yes Recently lost weight without trying: No Nutrition Risks: No Nutritional Risk Patient : No Meds Allergies Allergy/AdvReac Type Severity Reaction Status Date / Time citalopram [From CELEXA] Allergy Unknown hives, Verified 06/22/24 12:17 swelling of whole body including face,hands,feet codeine [CODEINE] Allergy Unknown nausea Verified 06/22/24 12:17 diazepam [From VALIUM] Allergy Unknown low blood Verified 06/22/24 12:17 pressure erythromycin base Allergy Unknown rash, Verified 06/22/24 12:17 [ERYTHROMYCIN BASE] swelling Penicillins [PENICILLINS] Allergy Unknown anaphylaxis Verified 06/22/24 12:17 Home Medications ?Medication ?Instructions ?Recorded ?Confirmed ?Last Taken ?Type bupropion HCl 150 mg 24 hr tablet, 150 mg PO QAM 01/08/24 Unknown History extended release Exam Airway Mallampati Class: II (caps laterally) TM Dist: >3cm Neck ROM: Full Heart: rrr Lungs: cta Assessment and Plan Assessment Anesthesia Assessment: Anesthesia Plan Discussed Final Anesthetic Review Family History of Problems with Anesthesia: No History of Problems with Anesthesia: No NPO: Yes ASA Class: II Final Preanesthetic Review: No Changes in Pt Med Stat, Meds/Allgs Chart Reviewed and Consent Obtained/Reviewed Patient Risk: Intermediate Procedure Risk: Low Anesthetic Plan Anesthetic Plan: MAC: Disposition: Standard PACU
[2024-08-01 10:56] VITALS: BP 124/54; PULSE 79; RESP 14; TEMP 37.1; O2SAT 99; BMI 34.3
[2024-08-01] MEDS: Lactated Ringers 1,000 ML 100 ML IVCONT (11:11)
--- NOTE | 2024-08-01 11:13 | MHC.SHP ---
Pre-Procedural Eval Section A - 24 Hr Update-Section A only Date of Service: 08/01/24 The patient is an INPATIENT: No The patient has been examined within 24 hours of the surgical procedure. The History & Physical has been completed within 30 days and I have reviewed it.: No Section B - Complete if H&P > 30 days Chief Complaint: screening, constipation, GERD Relevant Family History (Specify if Yes): Yes Relevant Social History: Tobacco Use (Former smoker) Present Medications: see Short Stay Collaborative assessment Medical History: Significant History (GERD, hypertension, history of DVT) History of Previous Operations: Relevant previous surgery/procedure and date(s) (H/O abdominoplasty H/O colonoscopy) Allergies: Allergies Allergy/AdvReac Type Severity Reaction Status Date / Time citalopram [From CELEXA] Allergy Unknown hives, Verified 06/22/24 12:17 swelling of whole body including face,hands,feet codeine [CODEINE] Allergy Unknown nausea Verified 06/22/24 12:17 diazepam [From VALIUM] Allergy Unknown low blood Verified 06/22/24 12:17 pressure erythromycin base Allergy Unknown rash, Verified 06/22/24 12:17 [ERYTHROMYCIN BASE] swelling Penicillins [PENICILLINS] Allergy Unknown anaphylaxis Verified 06/22/24 12:17 Review of Systems Sugical H&P ROS: Negative: Constitution, Cardiovascular, Respiratory and Gastrointestinal Exam Surgical H&P Exam: Normal: Heart, Normal: Lungs, Normal: Extremities and Normal: Abdomen Plan Diagnosis/Plan: Change (proceed with EGD and Colon) I have reviewed the history and physical and performed a pertinent physical examination on my patient. No changes have occurred unless specified. Time Spent With Patient Time: Total time managing care of this patient today ____ minutes.
--- NOTE | 2024-08-01 11:42 | P.OPN-COLO_ITS ---
Colonoscopy Operative Note Operative Note Date of Service: 08/01/24 Narrative: FLEXIBLE TRANSORAL UPPER GASTROINTESTINAL ENDOSCOPY WITH BIOPSIES AND ESOPHAGEAL BALLOON DILATION AND COLONOSCOPY TILL CECUM WITH Pre-op diagnosis: Surveillance for colon polyps, GERD, dysphagia Post-op diagnosis: GERD, dysphagia Gastritis, Colon Polyps, Diverticulosis, hemorrhoids Endoscopist:Gulshan Heart MD Anesthesia:?MAC UPPER ENDOSCOPY Consent: Indications for the procedure and potential complications of bleeding, perforation, reaction to medications and missed diagnosis were discussed with the patient and informed consent was obtained. Instrument: Olympus GIF H 190 mid size upper endoscope Monitoring: Vital signs and clinical assessment, continuous EKG monitoring, Pulse oximetry, Carbon Dioxide monitoring and blood pressure monitoring were done throughout the procedure. Procedure: The patient was placed in the left lateral decubitis position and pre-procedure medications were administered and a bite block was placed. The endoscope was inserted into the mouth and advanced under direct vision to the third part of duodenum. A careful inspection was made as the upper endoscope was withdrawn including a retroflexed examination of the proximal stomach; Findings and interventions are described below. Findings: Larynx: Normal Esophagus: GE junction at 34 cms, small hiatal hernia 34 to 35 cms. Mildly tortuous esophagus without stricture or ring. A 1 cms inlet patch at 15 cms Stomach: Moderate diffuse gastric erythema - biopsies were obtained from the antrum. Grade 2 flap valve on retroflexed examination of the cardia. Duodenum: Normal bulb and descending duodenum Intervention: Biopsies as noted above COLONOSCOPY PROCEDURE NOTE Instrument: Olympus PCF H 190 L variable stiffness pediatric colonoscope Monitoring: Vital signs and clinical assessment, intermittent blood pressure monitoring, continuous EKG monitoring, Pulse oximetry and Carbon Dioxide monitoring were done throughout the procedure. Please see anesthesia flowsheet. Colon withdrawl time was 20 minutes. Procedure: The patient was placed in the left lateral decubitis position and pre-procedure medications were administered. After a digital rectal examination of the ano-rectum, the video colonoscope was inserted into the rectum and advanced through the colon to the cecum. The colonoscope was slowly withdrawn in a retrograde panoramic fashion and the colon mucosa was carefully examined including a retroflexed view of the rectum. Findings and interventions are described below. Procedure Difficulty: Colon was long and tortuous and there was some loop formation. Findings: Terminal Ileum: Not evaluated Cecum: Normal Ascending Colon: A 2-3 mm sessile polyp in the mid AC - removed with a cold biopsy Transverse Colon: A 7-8 mm sessile polyp in the proximal TC - removed with a cold snare Descending Colon: Normal Sigmoid Colon: Normal Rectum: Normal Ano-rectum: Normal Colon preparation: Good after copious irrigation. [place] Bowel Preparation Scale Right colon; 2 Transverse colon: 2 Left colon; 2 (0 = Unprepared colon segment with mucosa not seen due to solid stool that cannot be cleared. 1 = Portion of mucosa of the colon segment seen, but other areas of the colon segment not well seen due to staining, residual stool and/or opaque liquid. 2 = Minor amount of residual staining, small fragments of stool and/or opaque liquid, but mucosa of colon segment seen well. 3 = Entire mucosa of colon segment seen well with no residual staining, small fragments of stool or opaque liquid) Impression and Post Procedure Diagnosis: Endoscopy Findings: ESOPHAGUS: STOMACH: DUODENUM: Colonoscopy Findings: Two small polyps were removed Plan: Pt has a FU appointment on 08/18/24 with Sylwia Richter NP, Repeat Colonoscopy in 5 years if polyps are adenomatous and due to history of adenomatous colon polyps and family history of colon cancer Above findings were reviewed with the patient and relevant handouts were given and the discharge area. BIOPSIES SHOWED: A. Stomach, antrum, biopsy: Antral-type and oxyntic mucosa with mild chronic inactive inflammation; no Helicobacter organisms seen. B. Stomach, body, biopsy: Oxyntic mucosa with mild chronic inactive inflammation; no Helicobacter organisms seen. C. Esophagus, distal, biopsy: Squamous epithelium within normal limits; no inflammation seen. D. Esophagus, mid, biopsy: Squamous epithelium within normal limits; no inflammation seen. E. Esophagus, proximal, biopsy: Squamous epithelium within normal limits; no inflammation seen. F. Esophagus, 15 cm, biopsy: Squamous epithelium within normal limits; no inflammation seen. G. Colon, ascending, polypectomy: Tubular adenoma; negative for high-grade dysplasia or carcinoma. H. Colon, transverse, polypectomies: Fragments of tubular adenoma; negative for high-grade dysplasia or carcinoma
[2024-08-01 12:25] VITALS: BP 111/70; PULSE 84; RESP 16; TEMP 36.6; O2SAT 98
[2024-08-01 12:40] VITALS: BP 130/52; PULSE 68; RESP 16; TEMP 36.2; O2SAT 98
== END 2024-08-01 13:23 | disposition home or self-care (01) ==
PROVIDERS: Visit Provider Internal Medicine Gastroenterology
PROC: (CPT 45385; principal; 2024-08-01 12:30)
DX: Z12.11 Encounter for screening for malignant neoplasm of colon (principal); D12.2 Benign neoplasm of ascending colon; D12.3 Benign neoplasm of transverse colon; K56.2 Volvulus; K57.30 Diverticulosis of large intestine without perforation or abscess without bleeding; K64.8 Other hemorrhoids; K59.04 Chronic idiopathic constipation; R13.10 Dysphagia, unspecified; K22.4 Dyskinesia of esophagus; K29.60 Other gastritis without bleeding; K44.9 Diaphragmatic hernia without obstruction or gangrene; K21.9 Gastro-esophageal reflux disease without esophagitis; I10 Essential (primary) hypertension; E78.00 Pure hypercholesterolemia, unspecified; Z86.718 Personal history of other venous thrombosis and embolism; Z87.891 Personal history of nicotine dependence; Z79.899 Other long term (current) drug therapy
CPT/HCPCS: 45385; 45380; 43239; 88305; 88313; 88342; C1726; J1596; J2003; J2704

== ENCOUNTER → 2024-08-01 10:06 | Outpatient (BNV) | payer MEDICARE, MEDICAID, SELFPAY | PROVIDERS: Visit Provider Internal Medicine Gastroenterology | DX: K22.89 Other specified disease of esophagus (principal); K29.70 Gastritis, unspecified, without bleeding; Z12.11 Encounter for screening for malignant neoplasm of colon; D12.2 Benign neoplasm of ascending colon; D12.3 Benign neoplasm of transverse colon | CPT/HCPCS: 43239; 43249; 45380; 45385 ==

== ENCOUNTER 2024-08-18 11:56 | Outpatient (AMB) | payer MEDICARE, MEDICAID, SELFPAY ==
[2024-08-18 12:03] VITALS: BP 108/72; PULSE 80; BMI 36.0
--- NOTE | 2024-08-18 12:03 | A.OFFVIS_ITS ---
Vital Signs 08/18/24 12:03 Height 5 ft 2 in Weight 196 lb 10.437 oz BMI 36.0 BP 108/72 Blood Pressure Location Lt brachial Position Sitting Pulse 80 Intake Visit Reasons: S/p egd/colon Intake Note: Jessi presents in follow up s/p colonoscopy and EGD. CC: Patient reports doing well and denies having any new GI symptoms. She states that she has been having regular BMs since after colonoscopy. [employer] Required: No Accompanied by: Self / Same As Patient Allergies citalopram [From CELEXA] Allergy (Unknown, Verified 08/18/24 12:09) hives, swelling of whole body including face,hands,feet codeine [CODEINE] Allergy (Unknown, Verified 08/18/24 12:09) nausea diazepam [From VALIUM] Allergy (Unknown, Verified 08/18/24 12:09) low blood pressure erythromycin base [ERYTHROMYCIN BASE] Allergy (Unknown, Verified 08/18/24 12:09) rash, swelling Penicillins [PENICILLINS] Allergy (Unknown, Verified 08/18/24 12:09) anaphylaxis HPI HPI S/p egd/colon: Details: She thinks she never received the Linzess 290, and she has had no relief with the 145mcg dose. So, we will send again and also give her bisacodyl to add if no movement. She continues to feel very bloated and has a great deal of gas. She is aware of the upcoming colonoscopy in July. EGD/COLONOSCOPY 08/01/24 Findings: Larynx: Normal Esophagus: GE junction at 34 cms, small hiatal hernia 34 to 35 cms. Mildly tortuous esophagus without stricture or ring. A 1 cms inlet patch at 15 cms Stomach: Moderate diffuse gastric erythema - biopsies were obtained from the antrum. Grade 2 flap valve on retroflexed examination of the cardia. Duodenum: Normal bulb and descending duodenum Intervention: Biopsies as noted above Findings: Terminal Ileum: Not evaluated Cecum: Normal Ascending Colon: A 2-3 mm sessile polyp in the mid AC - removed with a cold biopsy Transverse Colon: A 7-8 mm sessile polyp in the proximal TC - removed with a cold snare Descending Colon: Normal Sigmoid Colon: Normal Rectum: Normal Ano-rectum: Normal Impression and Post Procedure Diagnosis: Endoscopy Findings: ESOPHAGUS: STOMACH: DUODENUM: Colonoscopy Findings: Two small polyps were removed Plan: Pt has a FU appointment on 08/18/24 with Sylwia Richter NP, Repeat Colonoscopy in 5 years if polyps are adenomatous and due to history of adenomatous colon polyps and family history of colon cancer Above findings were reviewed with the patient and relevant handouts were given and the discharge area. BIOPSY BIOPSIES SHOWED: A. Stomach, antrum, biopsy: Antral-type and oxyntic mucosa with mild chronic inactive inflammation; no Helicobacter organisms seen. B. Stomach, body, biopsy: Oxyntic mucosa with mild chronic inactive inflammation; no Helicobacter organisms seen. C. Esophagus, distal, biopsy: Squamous epithelium within normal limits; no inflammation seen. D. Esophagus, mid, biopsy: Squamous epithelium within normal limits; no inflammation seen. E. Esophagus, proximal, biopsy: Squamous epithelium within normal limits; no inflammation seen. F. Esophagus, 15 cm, biopsy: Squamous epithelium within normal limits; no inflammation seen. G. Colon, ascending, polypectomy: Tubular adenoma; negative for high-grade dysplasia or carcinoma. H. Colon, transverse, polypectomies: Fragments of tubular adenoma; negative for high-grade dysplasia or carcinoma TODAY'S VISIT She is agreeable to a 5 year follow up. The procedure was well tolerated. The results were explained and the patient is agreeable to the follow-up interval as stated. The bowel pattern has returned to normal. Education was provided to tell any 1st degree relatives about their findings to be sure that they are screened by age 45. Educated that they will be put on a recall list when it is time for their repeat scope but should they move out of state or away from the hospital they will need to remember along with their primary to repeat the procedure in a timely fashion to avoid any adverse complications. Her dysphagia has improved with dilatation. The famotidine is working well for her GERD and her gastritis. She has not needed the Linzess or bisacodyl, she has been taking a probiotic and probiotic and eating 3 fruits a day. Since the colonoscopy she has been moving her bowels well. Her bloating has resolved. She is very happy with the help we have provided and with the resolution of her symptoms. She continues on her famotidine. Return office visit in 6 months [facility] Medical History (Updated 08/18/24 @ 12:22 by SOM Marie) Pre-op examination History of DVT (deep vein thrombosis) Surgical History History of esophagogastroduodenoscopy (EGD) H/O abdominoplasty H/O colonoscopy Family History Mother Colon polyp Ovarian cancer Pancreatic cancer Sister Colon cancer Sister Colon polyp Cancer of uterus Brother Liver cancer Maternal Aunt Colon cancer Maternal Uncle Colon polyp Social History Are you a primary nonfarm animal caretaker to a significant other at home: No Do you presently have visiting nurse or other home services: No Alcohol intake: current Alcohol intake frequency: does not drink Patient Tobacco Use Status: Former Tobacco user Review of Systems Const Denies fatigue, Denies fever(s), Denies night sweats, Denies poor appetite and Denies weight loss ENT Reports Normal hearing present, Denies dental pain, Denies dysphagia, Denies hearing loss, Denies mouth pain, Denies odynophagia, Denies throat swelling, Denies tongue swelling and Reports other (Dentition adequate) Card Reports no additional complaints Resp Reports no additional complaints GI Details: Denies abdominal pain, Denies melena, Denies bloating, Denies hematochezia, Denies constipation, Denies GI cramping, Denies dysphagia, Denies excessive flatus, Denies early satiety, Reports heartburn, Denies diarrhea, Denies nausea, Denies odynophagia, Denies vomiting and Denies hematemesis Skin/Breast Denies pruritus, Denies lesions, Denies rash and Denies jaundice Neuro Reports Normal hearing present and Denies Abnormal speech present Endo Denies fatigue Aller/Immun Denies throat swelling and Denies tongue swelling Physical Exam Vital Signs: Last Vital Signs Pulse 80 08/18/24 12:03 BP 108/72 08/18/24 12:03 BMI result Body Mass Index 36.0 Const General: cooperative, no acute distress, well developed and well groomed Nutritional Appearance: well nourished and obese Orientation/consciousness: oriented to person, oriented to place and oriented to time Limitations: No language barrier HEENT Head: Yes normocephalic and Yes atraumatic Eyes General: appearance normal, both eyes and all related structures Pupils: Equal, round and reactive pupils present Neck Neck: Yes normal visual inspection and Yes no lymphadenopathy Thyroid: Thyroid normal Resp Effort & Inspection: normal respiratory effort and able to speak in complete sentences Auscultation: clear to auscultation bilaterally Cardio Rate: regular rate Rhythm: regular rhythm Heart sounds: Normal, physiologic split S2 sound present Peripheral pulses: radial pulses present and posterior tibial pulses present GI Inspection: No distended, No Abdominal panniculus present and Yes obesity Palpation (GI): Soft to palpation, nontender, no guarding, not rigid and No hepatosplenomegaly present Percussion: Yes normal to percussion Auscultation: normal bowel sounds Rectal Exam - Female: deferred Skin General skin exam: no rashes or lesions noted, turgor normal, skin not dry, no jaundice, No spider nevi and no striae Rashes: no rashes Nails: normal Neuro General: oriented to person, oriented to place and oriented to time Cranial nerves: Yes Equal, round and reactive pupils present and Yes Normal hearing present Speech: No Abnormal speech present Extrem General: Yes normal to inspection, No clubbing, No cyanosis and No edema Psych Appearance: grossly normal and well kempt Mental Status: mental status grossly normal Speech and movement: Normal speech and movement present Affect: normal affect Attitude: cooperative Thought process: Normal thought process present and not confabulating Thought content: Normal thought content present Insight: Fair insight present (Psych) Judgement: Fair judgement present (Psych) Assessment & Plan Assessment & Plan (1) Tubular adenoma of colon: Comment: 07/2024 scope= 2 TA is repeat in 5 years Code(s): D12.6 - Benign neoplasm of colon, unspecified Category: Medical (2) Chronic idiopathic constipation: Code(s): K59.04 - Chronic idiopathic constipation Category: Medical (3) Dysphagia: Code(s): R13.10 - Dysphagia, unspecified Category: Medical (4) GERD (gastroesophageal reflux disease): Code(s): K21.9 - Gastro-esophageal reflux disease without esophagitis Category: Medical Plan She is agreeable to a 5 year follow up. The procedure was well tolerated. The results were explained and the patient is agreeable to the follow-up interval as stated. The bowel pattern has returned to normal. Education was provided to tell any 1st degree relatives about their findings to be sure that they are screened by age 45. Educated that they will be put on a recall list when it is time for their repeat scope but should they move out of state or away from the hospital they will need to remember along with their primary to repeat the procedure in a timely fashion to avoid any adverse complications. Her dysphagia has improved with dilatation. The famotidine is working well for her GERD and her gastritis. She has not needed the Linzess or bisacodyl, she has been taking a probiotic and probiotic and eating 3 fruits a day. Since the colonoscopy she has been moving her bowels well. Her bloating has resolved. She is very happy with the help we have provided and with the resolution of her symptoms. She continues on her famotidine. Return office visit in 6 months Coding Level of Care Code Est Pt Level 3 (37055) Diagnoses Tubular adenoma of colon D12.6 Chronic idiopathic constipation K59.04 Dysphagia R13.10 GERD (gastroesophageal reflux disease) K21.9
== END 2024-08-18 12:33 | disposition home or self-care (01) ==
PROVIDERS: Visit Provider Nurse Practitioner
DX: D12.6 Benign neoplasm of colon, unspecified (principal); K59.04 Chronic idiopathic constipation; R13.10 Dysphagia, unspecified; K21.9 Gastro-esophageal reflux disease without esophagitis
CPT/HCPCS: 99213

== ENCOUNTER → 2024-08-18 11:56 | Outpatient (BNVA) | payer MEDICARE, MEDICAID, SELFPAY | PROVIDERS: Visit Provider Nurse Practitioner | DX: D12.6 Benign neoplasm of colon, unspecified (principal); K59.04 Chronic idiopathic constipation; K21.9 Gastro-esophageal reflux disease without esophagitis; R13.10 Dysphagia, unspecified | CPT/HCPCS: 99212 ==